=== PATIENT | male | born 1955 | race Caucasian/White ===

== ENCOUNTER 2022-03-03 02:27 | Emergency (ER) | payer MEDICARE, MEDICAID ==
[2022-03-03] MEDS ORDERED: Albuterol 0.5% 2.5 MG/0.5 ML Neb Soln ONE (02:50)
[2022-03-03] MEDS ORDERED: Vancomycin 1 GM SDV ONE (03:38)
[2022-03-03] MEDS ORDERED: cefTRIAXone 1 GM Vial ONE (03:38)
[2022-03-03] MEDS ORDERED: Sodium Chloride 0.9% 1,000 ML IV SCH (03:45)
[2022-03-03] MEDS ORDERED: Levofloxacin/Dextrose 5%-Water 500 MG in Premix Bag 1 BAG IV ONE (03:52)
[2022-03-03 03:53] LABS: ESTIMATED GFR 74 mL/min (>60)
[2022-03-03] MEDS ORDERED: Albuterol 0.083% 2.5 MG/3 ML Neb Soln NEB ONE (04:00)
[2022-03-03] MEDS ORDERED: EPINEPHrine 1:10,000 1 MG/10 ML Syringe IVPUSH ONE (04:24)
[2022-03-03] MEDS ORDERED: Sodium Bicarbonate 8.4% 50 MEQ/50 ML Syringe IVPUSH ONE (06:01)
== END 2022-03-03 07:10 ==
LOC: JD.ED 02:27
DX: T17.928A Food in respiratory tract, part unspecified causing other injury, initial encounter (principal); J96.01 Acute respiratory failure with hypoxia; J96.02 Acute respiratory failure with hypercapnia; J44.9 Chronic obstructive pulmonary disease, unspecified; E03.9 Hypothyroidism, unspecified; E11.9 Type 2 diabetes mellitus without complications; Z88.1 Allergy status to other antibiotic agents; Z91.040 Latex allergy status; Z88.5 Allergy status to narcotic agent; Z88.8 Allergy status to other drugs, medicaments and biological substances; Z91.048 Other nonmedicinal substance allergy status; Z79.899 Other long term (current) drug therapy; Z79.82 Long term (current) use of aspirin; Z79.84 Long term (current) use of oral hypoglycemic drugs; Z20.822 Contact with and (suspected) exposure to COVID-19
CPT/HCPCS: 31500; 36415; 36600; 43752; 51702; 71045; 74018; 80053; 80307; 82803; 83605; 85007; 85027; 85610; 85730; 86850; 86900; 86901; 92950; 93005; 96361; 96365; 96368; 96375; 99285; J0171; J1956; J3370; J7030; J7050; U0002; 93010; 99140; 99291